=== PATIENT | female | born 1970 | race Caucasian/White ===

== ENCOUNTER → 2016-06-30 | Day surgery (SDC) | payer OTHER ==
[~2016-06-30] MED LIST: CLARITIN10 MG PO; CLINDAMYCIN150 MG PO; CORTISPORIN SUS10 ML OT; FLEXERIL10 MG PO; HYDROCODONE BIT1 T11 PO; NAPROSYN500 MG PO; PREDNISONE10 MG PO; QVAR0.08 MG/AC INH; SINGULAIR4 MG PO; TRAMADOL HCL50 MG PO
--- NOTE | ~2016-06-30 | O ---
[place], [place] OPERATIVE NOTE NAME: GEM GAN UNIT #: [id number] ROOM: DOCTOR: KORTNEY MIRAMONTES DMD BIRTHDATE: [birth year] DOS: PREOPERATIVE DIAGNOSES: Caries, periodontal disease, and anxiety. POSTOPERATIVE DIAGNOSES: Caries, periodontal disease, and anxiety. ANESTHESIA: General anesthesia with nasotracheal intubation. FLUIDS: Minimal. ESTIMATED BLOOD LOSS: Minimal. COMPLICATIONS: None. CONDITION: To PACU, stable. DESCRIPTION OF PROCEDURE: The patient was brought to the OR and placed in supine position. IV and EKG lines were placed. Nasotracheal intubation and general anesthesia was administered. The patient was prepped and draped for oral procedures. Risks and benefits were explained to the patient prior to surgery. Clinical exam and x-rays taken determined nonrestorable maxillary and mandibular dentition. PROCEDURES PERFORMED: Complete extraction of teeth numbers 3, 4, 6, 7, 8, 9, 10, 11, 12, 13, 14, 19, 20, 21, 22, 23, 24, 25, 26, 27, 28 and 29. Full thickness flaps in all 4 quadrants with moderate to extensive bone removal given the extensive crowding of the existing dentition. Bone removal had to be more extensive. Sutured with 4-0 Vicryl, lavaged x 2. Throat pack removed. The patient left the OR in good condition and went to the PACU. KORTNEY MIRAMONTES DMD CM:OPRECORD:OPERATIVE NOTE 9 1 KORTNEY MIRAMONTES DMD 07/01/16921 interface
== END | disposition home or self-care (01) ==
LOC: SDC 06-24 09:30
DX: K02.9 Dental caries, unspecified (principal); K05.6 Periodontal disease, unspecified; F41.9 Anxiety disorder, unspecified; J45.909 Unspecified asthma, uncomplicated; F17.210 Nicotine dependence, cigarettes, uncomplicated

== ENCOUNTER → 2016-07-23 | Outpatient (CLI) | payer OTHER ==
--- NOTE | ~2016-07-23 | PF ---
[place], [place] PULMONARY FUNCTION TEST NAME: GEM GAN UNIT #: [id number] ROOM: DOCTOR: ASUNCION GOMEZ MD,LIDIA BIRTHDATE: [birth year] DOS: 07/23/2016 ORDERED BY: Marisela Tom DO HISTORY: The patient recorded as a 45-year-old outpatient, female, height of 61 inches, weight of 180 pounds with BMI of 34. The patient with reported symptoms of dyspnea with exertion, nonproductive cough, rare wheezing. There were no past tobacco use. The diagnosis of bronchial asthma was also noted. SPIROMETRY: The FVC was recorded at 2.76 liters as 85% predicted value. No changes occurred postbronchodilator test. The FEV1 was noted 1.96 liters, 75% predicted value, mildly decreased without any significant post-bronchodilator change. Ratio of FEV1/FVC was noted as 71%. The flow volume loop was noted within normal limits. LUNG VOLUME: Thoracic gas volume recorded as 88%, residual volume 119%, total lung capacity 98%. The lung volumes were noted normal. The patient's lung diffusion noted normal at 96%. The patient's airway resistance and specific conductance were noted normal; however, partial improvement occurred postbronchodilator test. FINAL IMPRESSION: Nonspecific mild reduction of FEV1 was noted with possibility of mild obstructive lung disease cannot be completely excluded. LIDIA ROLAND MD CM:PFREPORT:PULMONARY FUNCTION TEST [id number] LIDIA GOMEZ MD
== END | disposition home or self-care (01) ==
LOC: CP 14:07
DX: J45.909 Unspecified asthma, uncomplicated (principal)

== ENCOUNTER 2016-11-01 19:25 | Emergency (ER) | payer OTHER ==
[~2016-11-01] VITALS: Ht 154.9 cm; Wt 81.6 kg
[2016-11-01 19:30] VITALS: BP 154/81
[2016-11-01] MEDS ORDERED: BREO ELLIPTA 11 EACH INH (19:31)
[2016-11-01] MEDS ORDERED: CLARITIN10 MG PO (19:32)
[2016-11-01] MEDS ORDERED: ATARAX,VISTARIL50 MG PO (20:16)
[2016-11-01] MEDS ORDERED: MYCOLOG CREAM 115 GM T (20:16)
== END 2016-11-01 20:26 | disposition home or self-care (01) ==
LOC: ED 19:25
DX: L30.9 Dermatitis, unspecified (principal)

== ENCOUNTER → 2016-12-23 | Outpatient (CLI) | payer OTHER ==
[~2016-12-23] MED LIST changes: +ATARAX,VISTARIL50 MG PO; +BREO ELLIPTA 11 EACH INH; +MYCOLOG CREAM 115 GM T
== END | disposition home or self-care (01) ==
LOC: MAMMO 12-18 11:30
DX: Z12.31 Encounter for screening mammogram for malignant neoplasm of breast (principal)

== ENCOUNTER → 2017-01-13 | Outpatient (CLI) | payer OTHER | END | disposition home or self-care (01) | LOC: MAMMO 12-30 09:30 | DX: N63.0 Unspecified lump in unspecified breast (principal); N60.02 Solitary cyst of left breast ==

== ENCOUNTER 2017-01-31 08:21 | Emergency (ER) | payer OTHER ==
[~2017-01-31] VITALS: Ht 154.9 cm; Wt 81.6 kg
[2017-01-31 08:27] VITALS: BP 124/77
[2017-01-31] MEDS ORDERED: VENTOLIN 02.5 MG/3 M INH (08:28)
[2017-01-31] MEDS ORDERED: POLYSPORIN OI28.3 GM T (09:01)
== END 2017-01-31 09:04 | disposition home or self-care (01) ==
LOC: ED 08:21
DX: L03.012 Cellulitis of left finger (principal)

== ENCOUNTER → 2017-10-20 | Outpatient (CLI) | payer OTHER ==
[~2017-10-20] MED LIST changes: +POLYSPORIN OI28.3 GM T; +VENTOLIN 02.5 MG/3 M INH
== END | disposition home or self-care (01) ==
LOC: MRI 10-04 13:00
DX: M23.91 Unspecified internal derangement of right knee (principal); M25.361 Other instability, right knee

== ENCOUNTER → 2018-03-01 | Outpatient (CLI) | payer OTHER | END | disposition home or self-care (01) | LOC: LAB 15:30 | DX: J45.901 Unspecified asthma with (acute) exacerbation (principal) ==

== ENCOUNTER 2018-03-25 14:33 | Emergency (ER) | payer OTHER ==
[~2018-03-25] VITALS: Ht 154.9 cm; Wt 83.9 kg
[2018-03-25] MEDS ORDERED: PREDNISONE50 MG PO (14:40)
[2018-03-25 14:41] VITALS: BP 178/90
[2018-03-25 15:00] LABS: BASO # 0.1 10*3/uL (0.0-0.1); BASO % 0.8 % (0.0-1.0); EOS # 1.1 10*3/uL (0.0-0.4); EOS % 10.4 % (1.0-4.0); HEMATOCRIT 41.2 % (37.0-47.0); HEMOGLOBIN 13.3 g/dl (12.0-16.0); LYMPH # 2.3 10*3/uL (1.3-4.4); LYMPH % 22.3 % (27.0-41.0); MEAN CELL VOLUME 90.9 fl (81.0-99.0); MEAN CORPUSCULAR HGB 29.4 pg (27.0-31.0); MEAN CORPUSCULAR HGB CONC 32.3 g/dl (33.0-37.0); MEAN PLATELET VOLUME 10.9 fl (9.6-12.3); MONO # 0.7 10*3/uL (0.1-1.0); MONO % 6.7 % (3.0-9.0); NEUT # 6.2 10*3/uL (2.3-7.9); NEUT % 59.4 % (47.0-73.0); PLATELET COUNT AUTOMATED 334 10*3/uL (130-400); RED BLOOD COUNT 4.53 10*6/uL (4.10-5.10); RED CELL DISTRI WIDTH 13.2 % (0-14.5); WHITE BLOOD COUNT 10.5 10*3/uL (4.8-10.8)
[2018-03-25 15:15] LABS: ALBUMIN 3.7 gm/dl (3.1-4.5); ALKALINE PHOSPHATASE 157 U/L (45-117); BUN 8 mg/dl (7-24); CHLORIDE 107 mmol/L (98-107); CREATININE 0.82 mg/dL (0.55-1.02); POTASSIUM 3.6 mmol/L (3.5-5.1); SGOT/AST 18 IU/L (3-35); SGPT/ALT 16 U/L (12-78); SODIUM 143 mmol/L (136-145); TOTAL PROTEIN 7.9 gm/dL (6.4-8.2)
== END 2018-03-25 15:55 | disposition home or self-care (01) ==
LOC: ED 14:33
PROVIDERS: Nurse Practitioner Family
DX: J45.901 Unspecified asthma with (acute) exacerbation (principal); R03.0 Elevated blood-pressure reading, without diagnosis of hypertension; Z79.2 Long term (current) use of antibiotics; Z79.899 Other long term (current) drug therapy

== ENCOUNTER → 2018-04-19 | Outpatient (CLI) | payer OTHER ==
[~2018-04-19] MED LIST changes: +PREDNISONE50 MG PO
[2018-04-19 16:38] LABS: BASO # 0.1 10*3/uL (0.0-0.1); BASO % 0.7 % (0.0-1.0); EOS # 0.6 10*3/uL (0.0-0.4); EOS % 6.8 % (1.0-4.0); HEMATOCRIT 41.3 % (37.0-47.0); HEMOGLOBIN 13.1 g/dl (12.0-16.0); LYMPH # 2.9 10*3/uL (1.3-4.4); LYMPH % 31.7 % (27.0-41.0); MEAN CELL VOLUME 91.6 fl (81.0-99.0); MEAN CORPUSCULAR HGB CONC 31.7 g/dl (33.0-37.0); MEAN PLATELET VOLUME 11.2 fl (9.6-12.3); MONO # 0.8 10*3/uL (0.1-1.0); MONO % 8.3 % (3.0-9.0); NEUT # 4.8 10*3/uL (2.3-7.9); NEUT % 52.1 % (47.0-73.0); PLATELET COUNT AUTOMATED 310 10*3/uL (130-400); RED BLOOD COUNT 4.51 10*6/uL (4.10-5.10); RED CELL DISTRI WIDTH 13.4 % (0-14.5); WHITE BLOOD COUNT 9.1 10*3/uL (4.8-10.8)
== END | disposition home or self-care (01) ==
LOC: LAB 15:39
PROVIDERS: Internal Medicine Critical Care Medicine
DX: Z79.899 Other long term (current) drug therapy (principal)

== ENCOUNTER → 2018-04-20 | Outpatient (CLI) | payer OTHER ==
--- NOTE | ~2018-04-20 | PF ---
[place], [place] PULMONARY FUNCTION TEST NAME: GEM GAN UNIT #: [id number] ROOM: DOCTOR: ASUNCION GOMEZ MD,LIDIA BIRTHDATE: [birth year] DOS: 04/20/2018 The testing was ordered by Dr. Isabela Burns. HISTORY: The patient is a 47-year-old female, height of 61 inches, weight of 180 pounds, BMI of 34. The testing was done for assessment of bronchial asthma. There were no past tobacco use. SPIROMETRY: FVC of 2.41 liters, 76% predicted value, partially decreased with 16% improvement of the patient, normal FEV1 recorded at 89% after post-bronchodilator. FEV1 1.54 liters, 60% predicted value, mildly decreased with 29% partial improvement. Postbronchodilator, ratio of FEV1/FVC 64%. Flow volume loop of the patient was noted with reversible obstructive airway pattern. LUNG VOLUME: Thoracic gas volume recorded 112%, residual volume 165%, total lung capacity 116%. RV/TLC ratio 144%. The patient's lung diffusion 118%. The patient's air resistance was conducted as normal. FINAL IMPRESSION: Current test was noted consistent with diagnosis of reversible obstructive lung disease as bronchial asthma. LIDIA ROLAND MD CM:PFREPORT:PULMONARY FUNCTION TEST [id number] LIDIA GOMEZ MD
== END | disposition home or self-care (01) ==
DX: J45.909 Unspecified asthma, uncomplicated (principal)

== ENCOUNTER → 2018-08-24 | Outpatient (CLI) | payer OTHER ==
[2018-08-24 14:49] LABS: BASO % 0.1 % (0.0-1.0); EOS % 0.1 % (1.0-4.0); HEMATOCRIT 44.6 % (37.0-47.0); HEMOGLOBIN 14.8 g/dl (12.0-16.0); LYMPH # 4.3 10*3/uL (1.3-4.4); LYMPH % 31.2 % (27.0-41.0); MEAN CELL VOLUME 91.8 fl (81.0-99.0); MEAN CORPUSCULAR HGB 30.5 pg (27.0-31.0); MEAN CORPUSCULAR HGB CONC 33.2 g/dl (33.0-37.0); MEAN PLATELET VOLUME 10.3 fl (9.6-12.3); MONO # 1.1 10*3/uL (0.1-1.0); MONO % 8.2 % (3.0-9.0); NEUT # 8.2 10*3/uL (2.3-7.9); NEUT % 59.2 % (47.0-73.0); PLATELET COUNT AUTOMATED 409 10*3/uL (130-400); RED BLOOD COUNT 4.86 10*6/uL (4.10-5.10); WHITE BLOOD COUNT 13.8 10*3/uL (4.8-10.8)
[2018-09-02 01:07] LABS: ALTERNARIA ALTERNATA, IGE 0.17 kU/L (Class 0/I); AMERICAN ELM, IGE 3.15 kU/L (Class III); ASPERGILLUS FUMIGATU, IGE 0.26 kU/L (Class 0/I); BERMUDA GRASS, IGE 5.48 kU/L (Class IV); BIRCH, COMMON SILVER IGE 2.79 kU/L (Class III); CLADOSPORIUM HERBARU, IGE 0.12 kU/L (Class 0/I); CODFISH, IGE <0.10 kU/L (Class 0); CORN, IGE 2.21 kU/L (Class III); D FARINAE MITE 0.99 kU/L (Class II); DOG DANDER, IGE 2.23 kU/L (Class III); IMMUNOGLOBULIN IgE 002170 2029 IU/mL (6-495); MAPLE LEAF SYCAMORE, IGE 3.09 kU/L (Class III); MAPLE/BOX ELDER, IGE 3.23 kU/L (Class III); MILK (COW), IGE 0.99 kU/L (Class II); MOUSE URINE IGE 0.11 kU/L (Class 0/I); PEANUT, IGE 3.64 kU/L (Class III); PENICILLIUM CHRYSOGENUM, IGE 0.25 kU/L (Class 0/I); SHEEP SORREL (DOCK), IGE 3.24 kU/L (Class III); SHORT RAGWEED, IGE 3.83 kU/L (Class III); SOYBEAN, IGE 2.32 kU/L (Class III); WALNUT TREE, IGE 2.96 kU/L (Class III); WHEAT, IGE 3.57 kU/L (Class III); WHITE ASH, IGE 3.41 kU/L (Class III); WHITE MULBERRY, IGE 2.35 kU/L (Class III); WHITE OAK, IGE 3.19 kU/L (Class III)
== END | disposition home or self-care (01) ==
LOC: LAB 13:52
PROVIDERS: Internal Medicine Critical Care Medicine
DX: J30.9 Allergic rhinitis, unspecified (principal); L50.1 Idiopathic urticaria

== ENCOUNTER → 2019-01-10 | Outpatient (CLI) | payer OTHER | END | disposition home or self-care (01) | LOC: RAD 11:24 | DX: M25.462 Effusion, left knee (principal) ==

== ENCOUNTER → 2019-05-29 | Outpatient (CLI) | payer OTHER | END | disposition home or self-care (01) | LOC: MAMMO 05-25 07:30 | DX: Z12.31 Encounter for screening mammogram for malignant neoplasm of breast (principal) ==

== ENCOUNTER → 2020-07-08 | Outpatient (CLI) | payer OTHER | END | disposition home or self-care (01) | LOC: COVID19 11:08 | PROVIDERS: ATTEND Family Medicine | DX: U07.1 COVID-19 (principal) ==

== ENCOUNTER → 2020-11-11 | Outpatient (CLI) | payer OTHER | END | disposition home or self-care (01) | LOC: RAD 15:24 | PROVIDERS: ATTEND Family Medicine | DX: M17.11 Unilateral primary osteoarthritis, right knee (principal) ==

== ENCOUNTER → 2021-01-20 | Outpatient (CLI) | payer OTHER | END | disposition home or self-care (01) | LOC: MAMMO 08:30 | PROVIDERS: ATTEND Family Medicine | DX: Z12.31 Encounter for screening mammogram for malignant neoplasm of breast (principal) ==

== ENCOUNTER → 2021-09-29 | Day surgery (SDC) | payer OTHER ==
[~2021-09-29] VITALS: Ht 154.9 cm; Wt 63.5 kg
[~2021-09-29] MED LIST changes: +ARIPIPRAZOLE2 MG PO; +CYMBALTA30 MG PO; +FUROSEMIDE20 M1 PO; +LISINOPRIL20 MG PO; +METHOCARBAMOL500 M1 PO; +OXYBUTYNIN5 MG PO; +PROAIR HFA8.5 GM INH; +PROZAC10 MG PO; +SPIRIVA RESPIMAT4 GM INH; +SYMB160 INH; +VITAMIN D325 MCG PO
[2021-09-29 07:15] VITALS: BP 133/76
[2021-09-29 08:08] VITALS: BP 118/61
[2021-09-29 08:23] VITALS: BP 111/63
[2021-09-29 08:36] VITALS: BP 116/67
[2021-09-29 10:47] VITALS: BP 118/61
== END | disposition home or self-care (01) ==
LOC: SDC 09-25 08:45
PROVIDERS: ATTEND Surgery
DX: Z12.11 Encounter for screening for malignant neoplasm of colon (principal); I10 Essential (primary) hypertension; F41.9 Anxiety disorder, unspecified; M79.7 Fibromyalgia; J45.909 Unspecified asthma, uncomplicated; Z90.89 Acquired absence of other organs

== ENCOUNTER → 2022-05-01 | Outpatient (CLI) | payer OTHER ==
[2022-05-01 10:44] LABS: BASO % 0.3 % (0.0-1.0); HEMATOCRIT 38.6 % (37.0-47.0); LYMPH % 31.2 % (27.0-41.0); MEAN CELL VOLUME 95.1 fl (81.0-99.0); MEAN CORPUSCULAR HGB 31.5 pg (27.0-31.0); MEAN CORPUSCULAR HGB CONC 33.2 g/dl (33.0-37.0); MEAN PLATELET VOLUME 11.1 fl (9.6-12.3); MONO # 0.5 10*3/uL (0.1-1.0); MONO % 7.5 % (3.0-9.0); NEUT % 60.5 % (47.0-73.0); PLATELET COUNT AUTOMATED 281 10*3/uL (130-400); RED BLOOD COUNT 4.06 10*6/uL (4.10-5.10); RED CELL DISTRI WIDTH 11.9 % (0-14.5); WHITE BLOOD COUNT 6.5 10*3/uL (4.8-10.8)
== END | disposition home or self-care (01) ==
LOC: LAB 10:02
PROVIDERS: ATTEND Internal Medicine Critical Care Medicine
DX: J30.89 Other allergic rhinitis (principal); J45.50 Severe persistent asthma, uncomplicated; Z79.899 Other long term (current) drug therapy; Z68.29 Body mass index [BMI] 29.0-29.9, adult

== ENCOUNTER → 2022-07-06 | Outpatient (CLI) | payer OTHER | END | disposition home or self-care (01) | LOC: CARD 08:30 | PROVIDERS: ATTEND Family Medicine | DX: M47.816 Spondylosis without myelopathy or radiculopathy, lumbar region (principal); M22.2X1 Patellofemoral disorders, right knee; M25.861 Other specified joint disorders, right knee; M48.07 Spinal stenosis, lumbosacral region; M47.812 Spondylosis without myelopathy or radiculopathy, cervical region; M48.02 Spinal stenosis, cervical region; M99.01 Segmental and somatic dysfunction of cervical region; M99.03 Segmental and somatic dysfunction of lumbar region ==

== ENCOUNTER → 2022-09-28 | Outpatient (CLI) | payer OTHER | END | disposition home or self-care (01) | LOC: LAB 09:47 | PROVIDERS: ATTEND Student in an Organized Health Care Education/Training Program | DX: R74.8 Abnormal levels of other serum enzymes (principal) ==

== ENCOUNTER → 2022-11-16 | Outpatient (CLI) | payer OTHER | END | disposition home or self-care (01) | LOC: CT 00:10 | PROVIDERS: ATTEND Family Medicine | DX: K80.20 Calculus of gallbladder without cholecystitis without obstruction (principal); K44.9 Diaphragmatic hernia without obstruction or gangrene; K59.00 Constipation, unspecified; K42.9 Umbilical hernia without obstruction or gangrene ==

== ENCOUNTER → 2022-12-10 | Outpatient (CLI) | payer OTHER | END | disposition home or self-care (01) | LOC: US 01:25 | PROVIDERS: ATTEND Surgery | DX: K80.20 Calculus of gallbladder without cholecystitis without obstruction (principal) ==

== ENCOUNTER → 2023-01-25 | Day surgery (SDC) | payer OTHER ==
[~2023-01-25] VITALS: Ht 154.9 cm; Wt 68.9 kg
[~2023-01-25] MED LIST changes: +TIZANIDINE HCL4 MG PO; +TOPCARE OMEPRAZ20 MG PO
[2023-01-25 09:22] VITALS: BP 127/66
[2023-01-25 11:00] VITALS: BP 114/63
[2023-01-25 11:15] VITALS: BP 110/54
[2023-01-25 11:31] VITALS: BP 103/66
[2023-01-25 13:51] VITALS: BP 114/63
== END | disposition home or self-care (01) ==
LOC: SDC 12-15 15:30
PROVIDERS: ATTEND Surgery
DX: R10.13 Epigastric pain (principal); K21.9 Gastro-esophageal reflux disease without esophagitis; K44.9 Diaphragmatic hernia without obstruction or gangrene; K29.50 Unspecified chronic gastritis without bleeding; B96.81 Helicobacter pylori [H. pylori] as the cause of diseases classified elsewhere; I10 Essential (primary) hypertension; J45.909 Unspecified asthma, uncomplicated; F41.9 Anxiety disorder, unspecified; F32.A Depression, unspecified; K80.20 Calculus of gallbladder without cholecystitis without obstruction; R06.00 Dyspnea, unspecified; R01.1 Cardiac murmur, unspecified; Z98.818 Other dental procedure status

== ENCOUNTER → 2023-04-19 | Day surgery (SDC) | payer OTHER ==
[2023-04-15 13:31] VITALS: BP 148/81
[2023-04-19] VITALS (9 sets, daily range): BP systolic 131–151; BP diastolic 78–85
[~2023-04-19] VITALS: Ht 154.9 cm; Wt 71.2 kg
[~2023-04-19] MED LIST changes: +CARAFATE1 G1 PO; +LIPITOR20 MG PO
== END | disposition home or self-care (01) ==
LOC: SDC 03-29 12:30
PROVIDERS: ATTEND Surgery
DX: K80.10 Calculus of gallbladder with chronic cholecystitis without obstruction (principal); R10.11 Right upper quadrant pain; K29.70 Gastritis, unspecified, without bleeding; K21.9 Gastro-esophageal reflux disease without esophagitis; I10 Essential (primary) hypertension; J45.909 Unspecified asthma, uncomplicated; F41.9 Anxiety disorder, unspecified; F32.A Depression, unspecified; G43.909 Migraine, unspecified, not intractable, without status migrainosus; R01.1 Cardiac murmur, unspecified; Z98.51 Tubal ligation status; Z90.89 Acquired absence of other organs; Z98.818 Other dental procedure status

== ENCOUNTER → 2023-05-17 | Outpatient (CLI) | payer OTHER | LOC: CARD 01:04 | PROVIDERS: ATTEND Student in an Organized Health Care Education/Training Program | DX: I10 Essential (primary) hypertension (principal); R07.9 Chest pain, unspecified ==

== ENCOUNTER → 2023-05-21 | Outpatient (CLI) | payer OTHER | END | disposition home or self-care (01) | LOC: RAD 10:03 | PROVIDERS: ATTEND Family Medicine | DX: R05.3 Chronic cough (principal) ==

== ENCOUNTER → 2023-09-09 | Outpatient (CLI) | payer OTHER ==
[~2023-09-09] MED LIST changes: +ATARAX,VISTARIL10 MG PO; +AZELASTINE HYDRO6 M1 OP; +COZAAR50 M1 PO; +CYCLOBENZAPRINE10 MG PO; +ESTRACE 0.01%42.5 GM V; +FLONASE ALLERG9.9 ML NAS; +IBU800 M1 PO; -LIPITOR20 MG PO; +LIPITOR40 MG PO; +MUCINEX1200 M1 PO; +OMEPRAZOLE40 MG PO; +PEPCID20 MG PO; +PERFOROMIS20 MCG/2 M INH; +PREDNISONE10 M1 PO; +PULMICORT0.5 MG/21 NEB; +Regadenoson 0.4 MG/5 ML SYR IV ONE; +SINGULAIR10 M1 PO; -SINGULAIR4 MG PO; -TOPCARE OMEPRAZ20 MG PO; +TRAZODONE150 MG PO; +VITAMIN D3125 MCG PO; -VITAMIN D325 MCG PO; +ZAFIRLUKAST PO; +ZYPREXA2.5 MG PO; +ZYRTEC10 M2 PO
== END | disposition home or self-care (01) ==
LOC: CARD 01:30
PROVIDERS: ATTEND Internal Medicine Cardiovascular Disease
DX: R00.0 Tachycardia, unspecified (principal); I10 Essential (primary) hypertension; E78.2 Mixed hyperlipidemia; R07.89 Other chest pain

== ENCOUNTER → 2023-11-26 | Outpatient (CLI) | payer OTHER ==
[~2023-11-26] MED LIST changes: -Regadenoson 0.4 MG/5 ML SYR IV ONE
== END | disposition home or self-care (01) ==
LOC: LAB 13:56
PROVIDERS: ATTEND Family Medicine
DX: E55.9 Vitamin D deficiency, unspecified (principal); R74.8 Abnormal levels of other serum enzymes

== ENCOUNTER → 2023-12-16 | Outpatient (CLI) | payer OTHER | END | disposition home or self-care (01) | LOC: LAB 01:22 | PROVIDERS: ATTEND Student in an Organized Health Care Education/Training Program | DX: R74.8 Abnormal levels of other serum enzymes (principal) ==

== ENCOUNTER → 2025-02-28 | Outpatient (CLI) | payer OTHER | END | disposition home or self-care (01) | LOC: MAMMO 02-21 10:30 | PROVIDERS: ATTEND Family Medicine | DX: Z12.31 Encounter for screening mammogram for malignant neoplasm of breast (principal); R92.323 Mammographic fibroglandular density, bilateral breasts ==

== ENCOUNTER → 2025-03-21 | Outpatient (CLI) | payer OTHER | END | disposition home or self-care (01) | LOC: LAB 15:28 | PROVIDERS: ATTEND Family Medicine | DX: D64.9 Anemia, unspecified (principal) ==